=== PATIENT | male | born 1980 | race Two or more races ===

== ENCOUNTER 2019-06-30 09:53 | Emergency (ER) | payer MEDICAID, OTHER ==
[~2019-06-30] VITALS: Ht 154.9 cm; Wt 77.1 kg
[2019-06-30] MEDS: cloNIDine HCL 0.1 MG TAB PO ONE (10:21)
[2019-06-30] MEDS: cloNIDine HCL 0.1 MG TAB ONE (10:21)
[2019-06-30 11:55] VITALS: BP 167/105
== END 2019-06-30 12:11 | disposition home or self-care (01) ==
LOC: ER 09:55
DX: G43.909 Migraine, unspecified, not intractable, without status migrainosus (principal); H66.91 Otitis media, unspecified, right ear; I10 Essential (primary) hypertension
CPT/HCPCS: 70450

== ENCOUNTER 2019-07-08 09:44 | Emergency (ER) | payer MEDICAID ==
[~2019-07-08] VITALS: Ht 154.9 cm; Wt 77.1 kg
[2019-07-08] MEDS ORDERED: ASPirin 81 mg TAB PO ONE (10:00)
[2019-07-08] MEDS ORDERED: cloNIDine HCL 0.1 MG TAB PO ONE (10:00)
[2019-07-08 10:16] LABS: Basophils # (auto) 0 uL; Basophils % (auto) 0.6 % (0.0-2.0); Eosinophils # (auto) 0.1 uL; Eosinophils % (auto) 1.2 % (0.0-7.0); Hematocrit 49.5 % (41.0-53.0); Hemoglobin 17.2 g/dL (13.5-17.5); Lymphocytes # (auto) 1.8 uL; Lymphocytes % (auto) 26.4 % (10.0-50.0); Mean Corpuscular Hemoglobin 30.4 pg (28.0-32.0); Mean Corpuscular Hgb Conc. 34.8 g/dL (32.0-36.0); Mean Corpuscular Volume 87.3 fL (80.0-100.0); Monocytes # (auto) 0.5 uL; Monocytes % (auto) 7.6 % (0.0-12.0); Neutrophils # (auto) 4.3 uL; Neutrophils % (auto) 64.2 % (37.0-80.0); Nucleated Red Blood Cells % 0.1 %; Platelet Count (auto) 235 10^3/uL (140-450); Red Blood Cells 5.67 10^6/uL (4.5-5.90); Red Cell Distribution Width 13.6 % (11.8-14.3); White Blood Cell 6.6 10^3/uL (4.4-10.8)
[2019-07-08 10:36] LABS: Albumin 4.2 g/dL (3.4-5.0); Anion Gap 5 (5-15); Blood Urea Nitrogen 15 mg/dL (7-18); Carbon Dioxide 30 mmol/L (21-32); Chloride 104 mmol/L (98-107); Glucose 92 mg/dL (74-106); Sodium 139 mmol/L (136-145)
[2019-07-08 10:41] LABS: Alanine Aminotransferase 64 U/L (16-61); Alkaline Phosphatase 75 U/L (45-117); Aspartate Aminotransferase 29 U/L (15-37); BUN/Creatinine Ratio 14.7; Bilirubin, Total 0.6 mg/dL (0.2-1.0); GFR African American 105 mL/min; GFR Non-African American 86 mL/min; Total Protein 8.1 g/dL (6.4-8.2)
[2019-07-08 11:50] VITALS: BP 144/100
[2019-07-08] MEDS: LORazepam 0.5 MG TAB PO ONE ×2 (11:52→11:59)
== END 2019-07-08 12:05 | disposition home or self-care (01) ==
LOC: ER 09:48
DX: I10 Essential (primary) hypertension (principal); F41.9 Anxiety disorder, unspecified; R51 Headache; R42 Dizziness and giddiness; R55 Syncope and collapse
CPT/HCPCS: 36415; 80053; 84484; 85025; 93005

== ENCOUNTER 2025-04-10 10:00 | Inpatient (IN) | payer MEDICAID ==
[~2025-04-10] VITALS: Ht 154.9 cm; Wt 65.5 kg
[2025-04-10 10:49] LABS: Urine Protein, UAD Negative (Negative)
[2025-04-10 11:14] LABS: Hematocrit 45.2 % (41.0-53.0); Hemoglobin 15.7 g/dL (13.5-17.5); Mean Corpuscular Hemoglobin 30.8 pg (28.0-32.0); Mean Corpuscular Volume 88.6 fL (80.0-100.0); Nucleated Red Blood Cells % 0.1 %
[2025-04-10 11:22] LABS: Potassium 3.7 mmol/L (3.5-5.1); Sodium 139 mmol/L (136-145)
[2025-04-10 11:23] LABS: Anion Gap 11 (5-15); Calcium 9.6 mg/dL (8.7-10.4); Carbon Dioxide 30 mmol/L (20-31)
[2025-04-10 11:27] LABS: Chloride 98 mmol/L (98-107)
[2025-04-10 11:28] LABS: BUN/Creatinine Ratio 7.7 (10.0-20.0)
[2025-04-10 11:29] LABS: Glucose 139 mg/dL (74-106)
[2025-04-10 11:30] LABS: Blood Urea Nitrogen 7 mg/dL (9-23)
--- NOTE | 2025-04-10 11:30 | ED.PDOC ---
General HPI Comments 44 year old male presents to the ED with a chief complaint of flank pain onset 1 day. Patient states he has been experiencing bilateral flank pain for the past day, last night began experiencing fever, chills, generalized body aches and headache. He experienced similar symptoms February 2025, hematuria, flank pain, resolved on its own, did not see PCP. Denies hematemesis, nausea, vomiting, dizziness, numbness/tingling, abdominal pain, chest pain. No other symptoms or modifying factors present at this time. Chief Complaint: Flank Pain Time Seen by MD: 11:15 Primary Care Provider: DENIES Reviewed notes: Medications, Allergies Allergies: Coded Allergies: NO KNOWN ALLERGIES (Unverified , 06/30/19) Home Meds Reported Medications Cholecalciferol (VITAMIN D3) 2,000 Unit Tab, 1 TAB PO DAILY, #30 TAB 5 Refills 04/10/25 Omeprazole (Gnp Omeprazole) 20 Mg Tab, 1 TAB PO DAILY, #90 TAB 1 Refill 04/10/25 Semaglutide (Ozempic) 2 Mg/3 Ml Inj, 2 MG SC, INJ 04/10/25 Atorvastatin Calcium (ATORVASTATIN CALCIUM) 20 Mg Tab 04/10/25 Lisinopril & Hydrochlorothiazi (Lisinopril/Hydrochlorothi) 1 Tab Tab, 1 TAB PO DAILY 04/10/25 Information Source: Patient Mode of Arrival: Ambulatory Severity: Moderate Timing: Days Duration: Since onset Prehospital treatment: None Onset: Spontaneous Symptoms: Other History of: Kidney stone Location: (R) Flank, (L)Flank Penile discharge: None Modifying factors: None associated signs and symptoms: Fever, Flank Pain Past Medical History PAST MEDICAL HISTORY: DM, High Lipids, HTN, Kidney Stones Surgical History: Denies all surgeries Family History Family History: Reviewed,noncontributory to illness Social History Smoker: Non-Smoker Alcohol: Denies ETOH Use Drugs: Denies Drug Use Lives In: Home Constitutional: reports: chills, fever, others (body aches); denies: diaphoresis, fatigue, malaise, sweats, weakness EENTM: denies: blurred vision, double vision, ear bleeding, ear discharge, ear drainage, ear pain, ear ringing, eye pain, eye redness, hearing loss, mouth pain, mouth swelling, nasal discharge, nose bleeding, nose congestion, nose pain, photophobia, tearing, throat pain, throat swelling, voice changes, others Respiratory: denies: cough, hemoptysis, orthopnea, SOB at rest, shortness of breath, SOB with excertion, stridor, wheezing, others Cardiovascular: denies: chest pain, dizzy spells, diaphoresis, Dyspnea on exertion, edema, irregular heart beat, left arm pain, lightheadedness, palpitations, PND, syncope, others Gastrointestinal: denies: abdomen distended, abdominal pain, blood streaked bowels, constipated, diarrhea, dysphagia, difficulty swallowing, hematemesis, melena, nausea, poor appetite, poor fluid intake, rectal bleeding, rectal pain, vomiting, others Genitourinary: reports: flank pain; denies: burning, dysuria, frequency, hematuria, incontinence, penile discharge, penile sore, pain, testicle pain, testicle swelling, urgency, others Neurological: reports: headache; denies: dizziness, fainting, left sided numbness, left sided weakness, numbness, paresthesia, pre-existing deficit, right sided numbness, right sided weakness, seizure, speech problems, tingling, tremors, weakness, others Musculoskeletal: denies: back pain, gout, joint pain, joint swelling, muscle pain, muscle stiffness, neck pain, others Integumetry: denies: bruises, change in color, change in hair/nails, dryness, laceration, lesions, lumps, rash, wounds, others Allergic/Immunocompromised: denies: Difficulty Healing, Frequent Infections, Hives, Itching, others Hematologic/Lymphatic: denies: anemia, blood clots, easy bleeding, easy bruising, swollen glands, others Endocrine: denies: excessive hunger, excessive sweating, excessive thirst, excessive urination, flushing, intolerance to cold, intolerance to heat, une xplained weight gain, unexplained weight loss, others Psychiatric: denies: anxiety, bipolar disorder, depression, hopeless, panic disorder, schizophrenia, sleepless, suicidal, others All Other Systems: Reviewed and Negative Physical Exam General Appearance: Moderate Distress, Normal HEENT: Normal ENT Inspection, Pharynx Normal, TMs Normal Neck: Full Range of Motion, Non-Tender, Normal, Normal Inspection Respiratory: Chest Non-Tender, Lungs Clear, No Accessory Muscle Use, No Respiratory Distress, Normal Breath Sounds Cardiovascular: No Edema, No JVD, No Murmur, No Gallop, Normal Peripheral Pulses, Regular Rate/Rhythm Breast Exam: Deferred Gastrointestinal: Diffuse, No Organomegaly, No Pulsatile Mass, Normal Bowel Sounds, Soft Genitalia: Deferred Pelvic: Deferred Rectal: Deferred Extremities: No calf tenderness, Normal capillary refill, Normal inspection, Normal range of motion, Non-tender, No pedal edema Musculoskeletal : Apperance: Normal Neurologic: Alert, spindle plumber II-XII nml as Tested, No Motor Deficits, Normal Affect, Normal Mood, No Sensory Deficits Cerebellar Function: Normal Reflexes: Normal Skin: Dry, Normal Color, Warm Peripheral Pulses: 3+ Radial (R), 3+ Radial (L) Lymphatic: No Adenopathy Was a procedure done? Was a procedure done?: No Differential Diagnosis Kidney stone (Female): Musculoskeletal pain, Urinary obstruction, Urolithiasis X-Ray, Labs, Meds, VS Vital Signs Date Time Temp Pulse Resp B/P (MAP) Pulse Ox O2 Delivery O2 Flow Rate FiO2 04/10/25 12:58 96 16 98 Room Air 04/10/25 12:58 98.5 96 16 124/78 (93) 98 98.5 04/10/25 10:02 98.5 106 18 114/82 96 98.5 Lab Test 04/10/25 12:52 04/10/25 11:00 04/10/25 10:34 Range/Units Lactic Acid Level 0.9 0.4-2.0 mmol/L White Blood Count 15.5 H 4.4-10.8 10^3/uL Red Blood Count 5.10 4.5-5.90 10^6/uL Hemoglobin 15.7 13.5-17.5 g/dL Hematocrit 45.2 41.0-53.0 % Mean Corpuscular Volume 88.6 80.0-100.0 fL Mean Corpuscular Hemoglobin 30.8 28.0-32.0 pg Mean Corpuscular Hemoglobin Concent 34.8 32.0-36.0 g/dL Red Cell Distribution Width 13.6 11.8-14.3 % Platelet Count 239 140-450 10^3/uL Mean Platelet Volume 7.2 6.9-10.8 fL Neutrophils (%) (Auto) 88.3 H 37.0-80.0 % Lymphocytes (%) (Auto) 6.4 L 10.0-50.0 % Monocytes (%) (Auto) 5.0 0.0-12.0 % Eosinophils (%) (Auto) 0.1 0.0-7.0 % Basophils (%) (Auto) 0.2 0.0-2.0 % Neutrophils # (Auto) 13.7 H 1.6-8.6 10 ^3/uL Lymphocytes # (Auto) 1.0 0.4-5.4 10 ^3/uL Monocytes # (Auto) 0.8 0-1.3 10 ^3/uL Eosinophils # (Auto) 0 0-0.8 10 ^3/uL Basophils # (Auto) 0 0-0.2 10 ^3/uL Nucleated Red Blood Cells 0.1 % Sodium Level 139 136-145 mmol/L Potassium Level 3.7 3.5-5.1 mmol/L Chloride Level 98 98-107 mmol/L Carbon Dioxide Level 30 20-31 mmol/L Anion Gap 11 5-15 Blood Urea Nitrogen 7 L 9-23 mg/dL Creatinine 0.91 0.700-1.30 mg/dL Glomerular Filtration Rate Calc 106 >90 mL/min BUN/Creatinine Ratio 7.7 L 10.0-20.0 Serum Glucose 139 H 74-106 mg/dL Calcium Level 9.6 8.7-10.4 mg/dL Urine Color Light-yellow Yellow Urine Clarity Clear Clear Urine pH 6.5 5.0-9.0 Urine Specific [place] 1.014 1.001-1.035 Urine Protein Negative Negative Urine Ketones Negative Negative Urine Blood Negative Negative /uL Urine Nitrite Negative Negative Urine Bilirubin Negative Negative Urine Urobilinogen Normal Negative mg/dL Urine Leukocyte Esterase Negative Negative /uL Urine RBC <1 0 - 3 /hpf Urine Microscopic WBC 4 H 0-3 /HPF Urine Squamous Epithelial Cells None seen <5 /hpf Urine Bacteria None seen None Seen /hpf Urine Glucose Normal Normal mg/dL Current Medications Medications (Trade) Dose Ordered Sig/Randy Route Start Time Stop Time Status Last Admin Metronidazole 100 ml @ 100 mls/hr ONCE ONCE IV 04/10/25 12:15 04/10/25 13:14 DC 04/10/25 12:56 Sodium Chloride 1,000 ml @ 1,000 mls/hr Q1H ONCE IV 04/10/25 12:15 04/10/25 13:14 DC 04/10/25 12:56 Patient alert. Complaining of flank pain extending to the abdomen. Vitals stable. Answering questions. Has been having fever. WBC elevated. Establish intravenous access. Was given fluids. Was given Zosyn. Was given Flagyl. Possible sepsis. Continue monitoring. Time of 1ST Reevaluation: 11:45 Reevaluation 1ST: Unchanged Patient Education/Counseling: Diagnosis, Treatment, Prognosis, Pt Unresponsive Family Education/Counseling: No Family Present SEPSIS Sepsis Screen Date sepsis recognized/suspect: Apr 10, 2025 Time Sepsis recognized/suspect: 1003 Recent Procedure: No On Antibiotic Therapy: No Respiratory Rate >20: No Heart Rate >90: No Temp<36 C (96.8 F) or >38.3 C: No SBP <90 or MAP <65 mmHG: No New Acute Mental Status Change: No Is the patient on CPAP, BIPAP,: No Physician Orders Ct Ab Pel Wo Con-No Oral Or Iv (04/10/25 12:08) Blood Culture (04/10/25 12:08) Sodium Chloride 0.9% (04/10/25 12:15) Vital Signs Date Time Temp Pulse Resp B/P (MAP) Pulse Ox O2 Delivery O2 Flow Rate FiO2 04/10/25 12:58 96 16 98 Room Air 04/10/25 12:58 98.5 96 16 124/78 (93) 98 98.5 04/10/25 10:02 98.5 106 18 114/82 96 98.5 Laboratory Tests Test 04/10/25 11:00 04/10/25 12:52 White Blood Count 15.5 10^3/uL (4.4-10.8) H Lactic Acid Level 0.9 mmol/L (0.4-2.0) Medications Medications Dose Ordered Sig/Randy Route Start Time Stop Time Status Last Admin Dose Admin Metronidazole 100 ml @ 100 mls/hr ONCE ONCE IV 04/10/25 12:15 04/10/25 13:14 DC 04/10/25 12:56 Sodium Chloride 1,000 ml @ 1,000 mls/hr Q1H ONCE IV 04/10/25 12:15 04/10/25 13:14 DC 04/10/25 12:56 Departure 1 Departure Time of Disposition: 13:48 Impression: Primary Impression: Sepsis, unspecified organism Qualified Codes: A41.9 - Sepsis, unspecified organism Additional Impression: Hyperglycemia Disposition: ADMITTED INPATIENT Admit to: Med Surg Condition: Guarded Critical Care Note Critical Care Time?: No Stability Stability form required: No Heart Score Heart Score: Heart Score Response (Comments) Value History N/A 0 EKG N/A 0 Age N/A 0 Risk Factors N/A 0 Troponin N/A 0 Total 0 I personally scribed for KENNETH QUINTERO MD ([email or web address]) on 04/10/25 at 11:30. Electronically submitted by Valeria Quezada ([email or web address]). KENNETH QUINTERO MD Apr 10, 2025 11:30
[2025-04-10] MEDS: PIPERACILLIN-TAZOB 3.375GM 100 ML IV ONE (12:15)
[2025-04-10] MEDS ORDERED: SODIUM CHLORIDE 0.9% 1,000 ML IV ONE (12:15)
--- NOTE | 2025-04-10 12:46 | DVH ---
Indication: colitisvsstone Technique: CT axial images of the abdomen and pelvis are obtained without contrast. Coronal and sagit candy reformats were obtained. Radiation Dose Information: CTDI volume is 8.23 mGy. Dose-length product is 446.35 mGy*cm Comparison: None FINDINGS: There is limited interpretation of the abdomen and pelvis without administration of intravenous contr ast. Bases demonstrate no pleural effusion. Adrenal glands, spleen, pancreas unremarkable in shape. Liver unremarkable in shape. No CT evidence for cholelithiasis. No hydronephrosis /nephrolithiasis. Stomach partially distended. Small bowel loops are normal in ca liber. Moderate volume stool in the colon. Normal appendix. Bladder partially distended. No free pelvic fluid. No inguinal lymphadenopathy. Mild thoracolumbar degenerative disc disease. IMPRESSION: Limited evaluation without contrast. No hydronephrosis / nephrolithiasis. No bowel obstruction. Moderate volume stool in the colon. Other findings as described
[2025-04-10] MEDS: SODIUM CHLORIDE 0.9% 1,000 ML IV ONE (12:56)
--- NOTE | 2025-04-10 14:58 | DVHHP2 ---
Admitting Diagnosis: Flank pain History of Present Illness 44 yo male patient c/o bilateral flank pain x 1 day with associated fever, chills, and body aches. Patient sts that he had similar symptoms in February and the pain resolved on its own. While in the emergency department the patient was evaluated by the provider, As per provider: Labs, vital signs, and imagining monitored. Patient will be admitted for further evaluation and treatment. I discussed admission with the patient/family and is in agreement to treatment plan. Allergies: Coded Allergies: NO KNOWN ALLERGIES (Unverified , 06/30/19) Home Meds Reported Medications Cholecalciferol (VITAMIN D3) 2,000 Unit Tab, 1 TAB PO DAILY, #30 TAB 5 Refills 04/10/25 Omeprazole (Gnp Omeprazole) 20 Mg Tab, 1 TAB PO DAILY, #90 TAB 1 Refill 04/10/25 Semaglutide (Ozempic) 2 Mg/3 Ml Inj, 2 MG SC, INJ 04/10/25 Atorvastatin Calcium (ATORVASTATIN CALCIUM) 20 Mg Tab 04/10/25 Lisinopril & Hydrochlorothiazi (Lisinopril/Hydrochlorothi) 1 Tab Tab, 1 TAB PO DAILY 04/10/25 Current Medications Current Medications Medications (Trade) Dose Ordered Sig/Randy Route PRN Reason Start Time Stop Time Status Last Admin Acetaminophen/ Hydrocodone Bitart ([place] 5/325MG Tab) 1 tab Q4HP PRN PO MODERATE PAIN (4-6 PAIN SCALE) 04/10/25 15:00 Temazepam (Restoril) 15 mg QHSP PRN PO FOR INSOMNIA 04/10/25 15:00 Ondansetron HCl (Zofran) 4 mg Q4HP PRN IV NAUSEA / VOMITING 04/10/25 15:00 Docusate Sodium (Colace Capsule) 100 mg BIDPRN PRN PO FOR CONSTIPATION 04/10/25 15:00 Enoxaparin Sodium (Lovenox) 40 mg DAILY SC 04/11/25 10:00 Acetaminophen (Tylenol Tablet) 650 mg Q6HP PRN PO PAIN SCALE 1-3 OR TEMP>100.4 04/10/25 15:00 04/10/25 17:07 Morphine Sulfate 2 mg Q4HPRN PRN IV SEVERE PAIN (7-10 PAIN SCALE) 04/10/25 16:00 Levofloxacin/ Dextrose 100 ml @ 100 mls/hr DAILY IV 04/10/25 15:00 04/10/25 20:16 Atorvastatin Calcium (Lipitor) 20 mg HS PO 04/10/25 22:00 Patient Own Medication 1 tab DAILY PO 04/11/25 10:00 04/10/25 15:59 DC Pantoprazole Sodium (Protonix Tablet) 40 mg DAILY@0600 PO 04/11/25 06:00 04/10/25 18:18 DC Lisinopril (Zestril Tablet) 20 mg DAILY PO 04/11/25 10:00 Hydrochlorothiazide (hydroCHLOROthiazide TABLET) 12.5 mg DAILY PO 04/11/25 10:00 Sodium Chloride 1,000 ml @ 100 mls/hr Q10H IV 04/10/25 17:30 04/10/25 17:30 Famotidine (Pepcid Tablet) 20 mg DAILY PO 04/11/25 10:00 Future hold Review of Systems Constitutional: denies chills, denies fever, denies malaise Eyes: denies eye pain, denies vision change ENT: denies ear pain, denies headache, denies nasal congestion, denies painful swallowing, denies voice change Cardiovascular: denies chest pain, denies edema, denies orthopnea, denies palpitations, denies paroxysmal nocturnal dyspnea Respiratory: denies cough, denies shortness of breath Gastrointestinal: denies constipation, denies diarrhea, denies nausea, denies vomiting Genitourinary: denies dysuria, denies frequent urination, denies urethral discharge Musculoskeletal: denies back pain, denies joint pain, denies muscle pain Skin: denies bruising, denies itching, denies rash Neurological: denies focal weakness, denies headache, denies sensory changes Psychiatric: denies anxiety, denies depression Endocrine: denies polydipsia, denies polyuria Hematologic/Lymphatic: denies easy bleeding, denies easy bruising, denies enlarged lymph nodes Allergic/Immunologic: denies allergy, denies hives Vital Signs Vital Signs Date Time Temp Pulse Resp B/P (MAP) Pulse Ox O2 Delivery O2 Flow Rate FiO2 04/10/25 16:59 98.5 89 18 128/74 (92) 97 98.5 04/10/25 12:58 Room Air Physical Exam General Appearance: alert, no distress HEENT: EOMI, PERRLA, normal external inspect of ears, no icterus, no nasal drainage Neck: no carotid bruit, no jugular venous distention (JVD), no lymphadenopathy Chest: normal thorax Respiratory: clear to auscultation, normal air movement Cardiovascular: regular rate and rhythm, no diastolic murmur, no jugular venous distention (JVD), no rub, no systolic murmur Abdominal: soft, no hepatomegaly, no mass, no splenomegaly, no tenderness Genitourinary: grossly normal external Musculoskeletal: no joint tenderness, no swelling Extremities: normal pulses, no calf tenderness, no clubbing, no cyanosis, no edema Skin: no bruising, no jaundice, no rash Neurological: alert, No focal deficit SEPSIS Sepsis Screen Date sepsis recognized/suspect: Apr 10, 2025 Time Sepsis recognized/suspect: 1002 Recent Procedure: No On Antibiotic Therapy: No Respiratory Rate >20: No Heart Rate >90: No Temp<36 C (96.8 F) or >38.3 C: No SBP <90 or MAP <65 mmHG: No New Acute Mental Status Change: No Is the patient on CPAP, BIPAP,: No Physician Orders Ct Ab Pel Wo Con-No Oral Or Iv (04/10/25 12:08) Blood Culture (04/10/25 12:08) Admit (04/10/25 14:55) Code Status (04/10/25 14:55) 2 Gm Sodium Diet (04/10/25 Dinner) Hydrocodone-Acet 5/325mg Tab ([place] 5/32 (04/10/25 15:00) Temazepam (Restoril) (04/10/25 15:00) Ondansetron Hcl (Zofran) (04/10/25 15:00) Docusate Sodium Capsule (Colace Capsule) (04/10/25 15:00) Enoxaparin Sodium (Lovenox) (04/11/25 10:00) Complete Blood Count (04/11/25 04:00) Comprehensive Metabolic Panel (04/11/25 04:00) Condition: Fair (04/10/25 14:55) Acetaminophen Tablet (Tylenol Tablet) (04/10/25 15:00) Levofloxacin 500mg (Levaquin 500mg/ 100m (04/10/25 15:00) Atorvastatin (Lipitor) (04/10/25 22:00) Morphine Sulfate Injection (04/10/25 16:00) Lisinopril Tablet (Zestril Tablet) (04/11/25 10:00) Hydrochlorothiazide Tablet (Hydrochlorot (04/11/25 10:00) Sodium Chloride 0.9% (04/10/25 17:30) Famotidine Tablet (Pepcid Tablet) (04/11/25 10:00) Vital Signs Date Time Temp Pulse Resp B/P (MAP) Pulse Ox O2 Delivery O2 Flow Rate FiO2 04/10/25 16:59 98.5 89 18 128/74 (92) 97 98.5 04/10/25 12:58 96 16 98 Room Air 04/10/25 12:58 98.5 96 16 124/78 (93) 98 98.5 04/10/25 10:02 98.5 106 18 114/82 96 98.5 Laboratory Tests Test 04/10/25 11:00 04/10/25 12:52 White Blood Count 15.5 10^3/uL (4.4-10.8) H Lactic Acid Level 0.9 mmol/L (0.4-2.0) Medications Medications Dose Ordered Sig/Randy Route Start Time Stop Time Status Last Admin Dose Admin Acetaminophen 650 mg Q6HP PRN PO 04/10/25 15:00 04/10/25 17:07 Levofloxacin/ Dextrose 100 ml @ 100 mls/hr DAILY IV 04/10/25 15:00 04/10/25 20:16 Metronidazole 100 ml @ 100 mls/hr ONCE ONCE IV 04/10/25 12:15 04/10/25 13:14 DC 04/10/25 12:56 Piperacillin Sod/ Tazobactam Sod 100 ml @ 100 mls/hr ONCE ONCE IV 04/10/25 12:15 04/10/25 13:14 DC 04/10/25 12:15 Sodium Chloride 1,000 ml @ 100 mls/hr Q10H IV 04/10/25 17:30 04/10/25 17:30 Sodium Chloride 1,000 ml @ 1,000 mls/hr Q1H ONCE IV 04/10/25 12:15 04/10/25 13:14 DC 04/10/25 12:56 Results Labs Test 04/10/25 12:52 04/10/25 11:00 04/10/25 10:34 Range/Units Lactic Acid Level 0.9 0.4-2.0 mmol/L White Blood Count 15.5 H 4.4-10.8 10^3/uL Red Blood Count 5.10 4.5-5.90 10^6/uL Hemoglobin 15.7 13.5-17.5 g/dL Hematocrit 45.2 41.0-53.0 % Mean Corpuscular Volume 88.6 80.0-100.0 fL Mean Corpuscular Hemoglobin 30.8 28.0-32.0 pg Mean Corpuscular Hemoglobin Concent 34.8 32.0-36.0 g/dL Red Cell Distribution Width 13.6 11.8-14.3 % Platelet Count 239 140-450 10^3/uL Mean Platelet Volume 7.2 6.9-10.8 fL Neutrophils (%) (Auto) 88.3 H 37.0-80.0 % Lymphocytes (%) (Auto) 6.4 L 10.0-50.0 % Monocytes (%) (Auto) 5.0 0.0-12.0 % Eosinophils (%) (Auto) 0.1 0.0-7.0 % Basophils (%) (Auto) 0.2 0.0-2.0 % Neutrophils # (Auto) 13.7 H 1.6-8.6 10 ^3/uL Lymphocytes # (Auto) 1.0 0.4-5.4 10 ^3/uL Monocytes # (Auto) 0.8 0-1.3 10 ^3/uL Eosinophils # (Auto) 0 0-0.8 10 ^3/uL Basophils # (Auto) 0 0-0.2 10 ^3/uL Nucleated Red Blood Cells 0.1 % Sodium Level 139 136-145 mmol/L Potassium Level 3.7 3.5-5.1 mmol/L Chloride Level 98 98-107 mmol/L Carbon Dioxide Level 30 20-31 mmol/L Anion Gap 11 5-15 Blood Urea Nitrogen 7 L 9-23 mg/dL Creatinine 0.91 0.700-1.30 mg/dL Glomerular Filtration Rate Calc 106 >90 mL/min BUN/Creatinine Ratio 7.7 L 10.0-20.0 Serum Glucose 139 H 74-106 mg/dL Calcium Level 9.6 8.7-10.4 mg/dL Urine Color Light-yellow Yellow Urine Clarity Clear Clear Urine pH 6.5 5.0-9.0 Urine Specific [place] 1.014 1.001-1.035 Urine Protein Negative Negative Urine Ketones Negative Negative Urine Blood Negative Negative /uL Urine Nitrite Negative Negative Urine Bilirubin Negative Negative Urine Urobilinogen Normal Negative mg/dL Urine Leukocyte Esterase Negative Negative /uL Urine RBC <1 0 - 3 /hpf Urine Microscopic WBC 4 H 0-3 /HPF Urine Squamous Epithelial Cells None seen <5 /hpf Urine Bacteria None seen None Seen /hpf Urine Glucose Normal Normal mg/dL Plan 1. Complicated UTI Monitor, IV fluids, IV abx 2. HLD Monitor, PPI, DVT prophylaxis 3. Benign essential HTN Monitor, restart atorvastatin, restart lisinopril Plan discussed with: Patient, Other MARIA D NOBLE NP Apr 10, 2025 14:58
[2025-04-10] MEDS ORDERED: LISI-285 PO (14:59)
[2025-04-10] MEDS ORDERED: ATOR20TA50 (14:59)
[2025-04-10] MEDS ORDERED: ONDANSETRON HCL 4 MG/2 ML VIAL IV PRN (15:00)
[2025-04-10] MEDS ORDERED: HYDROcodone-ACET 5/325MG TAB PO PRN (15:00)
[2025-04-10] MEDS ORDERED: DOCUSATE SOD 100 MG CAP PO PRN (15:00)
[2025-04-10] MEDS ORDERED: TEMAZEPAM 15 MG CAP PO PRN (15:00)
[2025-04-10] MEDS ORDERED: MORPHINE SULFATE 4 MG/ML SYR/VIAL IV PRN (16:00)
[2025-04-10 16:59] VITALS: BP 128/74; PULSE 89; RESP 18; TEMP 98.5; O2SAT 97
[2025-04-10] MEDS: ACETAMINOPHEN 325 MG TAB PO PRN (17:07)
[2025-04-10] MEDS ORDERED: CHOL20007 PO (17:19)
[2025-04-10] MEDS ORDERED: SEMA2INJ3 SC (17:19)
[2025-04-10] MEDS ORDERED: OMEP20TA PO (17:19)
[2025-04-10] MEDS: SODIUM CHLORIDE 0.9% 1,000 ML IV SCH (17:30)
[2025-04-10 20:47] VITALS: BP 112/77; PULSE 84; RESP 16; TEMP 98.8; O2SAT 99
[2025-04-10 21:13] VITALS: BP 115/85; PULSE 83; RESP 16; TEMP 98.3; O2SAT 96
[2025-04-10] MEDS: ATORVASTATIN 20 MG TAB PO SCH (22:58)
[2025-04-11] VITALS (7 sets, daily range): BP systolic 106–126; BP diastolic 71–87; PULSE 78–83; RESP 16–80; TEMP 98.3–98.8; O2SAT 96–99
[2025-04-11] MEDS ORDERED: PANTOPRAZOLE 40 MG TAB PO SCH (06:00)
[2025-04-11 09:28] LABS: Hematocrit 42.8 % (41.0-53.0); Hemoglobin 15.2 g/dL (13.5-17.5); Mean Corpuscular Hemoglobin 31.1 pg (28.0-32.0); Mean Corpuscular Volume 87.7 fL (80.0-100.0); Nucleated Red Blood Cells % 0.1 %
[2025-04-11 09:42] LABS: Alanine Aminotransferase 18 U/L (7-40); Alkaline Phosphatase 56 U/L (46-116); Anion Gap 10 (5-15); BUN/Creatinine Ratio 8.1 (10.0-20.0); Calcium 9.1 mg/dL (8.7-10.4); Carbon Dioxide 28 mmol/L (20-31); Chloride 103 mmol/L (98-107); Glucose 98 mg/dL (74-106); Potassium 3.9 mmol/L (3.5-5.1); Sodium 141 mmol/L (136-145); Total Protein 7.4 g/dL (5.7-8.2)
[2025-04-11 09:43] LABS: Albumin 4.6 g/dL (3.2-4.8)
[2025-04-11 09:44] LABS: Bilirubin, Total 2.1 mg/dL (0.2-1.0); Blood Urea Nitrogen 6 mg/dL (9-23)
[2025-04-11] MEDS ORDERED: PATIENTS OWN MEDICATION (Lisinopril & Hydrochlorothiazi (Lisinopril/Hydrochlorothi) 1 TAB) PO SCH (10:00)
[2025-04-11] MEDS: ENOXAPARIN SOD 40 MG/0.4 ML SYRINGE SC SCH (10:03)
[2025-04-11] MEDS: FAMOTIDINE 20 MG TAB PO SCH (10:04)
[2025-04-11] MEDS: hydroCHLOROthiazide 25 MG TAB PO SCH (10:04)
[2025-04-11] MEDS: LISINOPRIL 20 MG TAB PO SCH (10:04)
--- NOTE | 2025-04-11 12:08 | DVHPN2 ---
Progress Note - Dictate Date Seen: Apr 11, 2025 Medical Necessity Reason Pt with a Central, PICC or Fol: No vital signs Vital Sign Date Time Temp Pulse Resp B/P (MAP) Pulse Ox O2 Delivery O2 Flow Rate FiO2 04/11/25 10:04 126/56 04/11/25 09:00 98.6 80 18 96 98.6 04/10/25 21:33 Room Air* 0 21 Total Intake and Output 04/10/25 04/10/25 04/11/25 15:00 23:00 07:00 Intake Total 220 ml Output Total 0 ml Balance 0 ml 220 ml medications Current Medications Medications Dose Ordered Sig/Randy Route Start Time Stop Time Status Last Admin Dose Admin Acetaminophen/ Hydrocodone Bitart 1 tab Q4HP PRN PO 04/10/25 15:00 Temazepam 15 mg QHSP PRN PO 04/10/25 15:00 Ondansetron HCl 4 mg Q4HP PRN IV 04/10/25 15:00 Docusate Sodium 100 mg BIDPRN PRN PO 04/10/25 15:00 Enoxaparin Sodium 40 mg DAILY SC 04/11/25 10:00 04/11/25 10:03 40 MG Acetaminophen 650 mg Q6HP PRN PO 04/10/25 15:00 04/11/25 06:27 650 MG Morphine Sulfate 2 mg Q4HPRN PRN IV 04/10/25 16:00 Levofloxacin/ Dextrose 100 ml @ 100 mls/hr DAILY IV 04/10/25 15:00 04/11/25 10:05 100 MLS/HR Atorvastatin Calcium 20 mg HS PO 04/10/25 22:00 04/10/25 22:58 20 MG Lisinopril 20 mg DAILY PO 04/11/25 10:00 04/11/25 10:04 20 MG Hydrochlorothiazide 12.5 mg DAILY PO 04/11/25 10:00 04/11/25 10:04 12.5 MG Sodium Chloride 1,000 ml @ 100 mls/hr Q10H IV 04/10/25 17:30 04/10/25 17:30 100 MLS/HR Famotidine 20 mg DAILY PO 04/11/25 10:00 04/11/25 10:04 20 MG objective General Appearance: alert, no distress HEENT: EOMI, PERRLA, normal external inspect of ears, no icterus, no nasal drainage Neck: no carotid bruit, no jugular venous distention (JVD), no lymphadenopathy Chest: normal thorax Respiratory: clear to auscultation, normal air movement Cardiovascular: regular rate and rhythm, no diastolic murmur, no jugular venous distention (JVD), no rub, no systolic murmur Abdominal: soft, no hepatomegaly, no mass, no splenomegaly, no tenderness Genitourinary: grossly normal external Musculoskeletal: no joint tenderness, no swelling Extremities: normal pulses, no calf tenderness, no clubbing, no cyanosis, no edema Skin: no bruising, no jaundice, no rash Neurological: alert, No focal deficit laboratory and microbiology Laboratory Tests 04/11/25 07:39 Test 04/11/25 07:39 Range/Units Serum Glucose 98 74-106 mg/dL Problem List 1. Complicated UTI Monitor, IV fluids, IV abx 2. HLD Monitor, PPI, DVT prophylaxis 3. Benign essential HTN Monitor, restart atorvastatin, restart lisinopril Assessment/Plan Subjective: Patient is awake and alert. Objective: Patient was admitted for flank pain related to a complicated UTI. He states he felt much better after receiving IV fluids and IV antibiotics. Still complaining of periodic pain 5 out of 10 that comes and goes to his leg area. WBC is now within normal limits. Plan: Continue IV fluids and IV antibiotics. Start medication for high blood pressure. Continue hypercholesterol medication. Repeat labs ordered for a.m. Discharge plan for tomorrow. Plan discussed with: Patient, Other MARIA D NOBLE NP Apr 11, 2025 12:08
[2025-04-12 01:00] VITALS: BP 109/70; PULSE 70; RESP 18; TEMP 98; O2SAT 97
[2025-04-12 05:00] VITALS: BP 107/72; PULSE 73; RESP 17; TEMP 97.7; O2SAT 98
[2025-04-12 07:30] VITALS: PULSE 87; RESP 18; O2SAT 96
[2025-04-12 09:00] VITALS: BP 134/92; PULSE 87; RESP 18; TEMP 97.7; O2SAT 96
[2025-04-12] MEDS ORDERED: LEVO500T91 PO ×2 (11:44→11:46)
--- NOTE | 2025-04-12 11:46 | DVHDS2 ---
Discharge Summary Date of Admission Apr 10, 2025 at 14:55 Date of Discharge: Apr 12, 2025 Labs/Diagnostic Data: Laboratory Results Test 04/11/25 07:39 04/10/25 12:52 04/10/25 10:34 White Blood Count 10.3 10^3/uL (4.4-10.8) Red Blood Count 4.88 10^6/uL (4.5-5.90) Hemoglobin 15.2 g/dL (13.5-17.5) Hematocrit 42.8 % (41.0-53.0) Mean Corpuscular Volume 87.7 fL (80.0-100.0) Mean Corpuscular Hemoglobin 31.1 pg (28.0-32.0) Mean Corpuscular Hemoglobin Concent 35.4 g/dL (32.0-36.0) Red Cell Distribution Width 14.0 % (11.8-14.3) Platelet Count 234 10^3/uL (140-450) Mean Platelet Volume 8.1 fL (6.9-10.8) Neutrophils (%) (Auto) 83.9 % (37.0-80.0) Lymphocytes (%) (Auto) 9.8 % (10.0-50.0) Monocytes (%) (Auto) 5.8 % (0.0-12.0) Eosinophils (%) (Auto) 0.2 % (0.0-7.0) Basophils (%) (Auto) 0.3 % (0.0-2.0) Neutrophils # (Auto) 8.7 10 ^3/uL (1.6-8.6) Lymphocytes # (Auto) 1.0 10 ^3/uL (0.4-5.4) Monocytes # (Auto) 0.6 10 ^3/uL (0-1.3) Eosinophils # (Auto) 0 10 ^3/uL (0-0.8) Basophils # (Auto) 0 10 ^3/uL (0-0.2) Nucleated Red Blood Cells 0.1 % Sodium Level 141 mmol/L (136-145) Potassium Level 3.9 mmol/L (3.5-5.1) Chloride Level 103 mmol/L (98-107) Carbon Dioxide Level 28 mmol/L (20-31) Anion Gap 10 (5-15) Blood Urea Nitrogen 6 mg/dL (9-23) Creatinine 0.74 mg/dL (0.700-1.30) Glomerular Filtration Rate Calc 114 mL/min (>90) BUN/Creatinine Ratio 8.1 (10.0-20.0) Serum Glucose 98 mg/dL (74-106) Calcium Level 9.1 mg/dL (8.7-10.4) Total Bilirubin 2.1 mg/dL (0.2-1.0) Aspartate Amino Transferase (AST) 16 U/L (13-40) Alanine Aminotransferase (ALT) 18 U/L (7-40) Alkaline Phosphatase 56 U/L (46-116) Total Protein 7.4 g/dL (5.7-8.2) Albumin 4.6 g/dL (3.2-4.8) Lactic Acid Level 0.9 mmol/L (0.4-2.0) Urine Color Light-yellow (Yellow) Urine Clarity Clear (Clear) Urine pH 6.5 (5.0-9.0) Urine Specific [place] 1.014 (1.001-1.035) Urine Protein Negative (Negative) Urine Ketones Negative (Negative) Urine Blood Negative /uL (Negative) Urine Nitrite Negative (Negative) Urine Bilirubin Negative (Negative) Urine Urobilinogen Normal mg/dL (Negative) Urine Leukocyte Esterase Negative /uL (Negative) Urine RBC <1 /hpf (0 - 3) Urine Microscopic WBC 4 /HPF (0-3) Urine Squamous Epithelial Cells None seen /hpf (<5) Urine Bacteria None seen /hpf (None Seen) Urine Glucose Normal mg/dL (Normal) Other Laboratory Tests 04/11/25 07:39 Brief Hx & Hospital Course: 44 yo male patient c/o bilateral flank pain x 1 day with associated fever, chills, and body aches. Patient sts that he had similar symptoms in February and the pain resolved on its own. Patient was admitted on April 10 for complicated UTI patient was treated with IV antibiotics. Patient states his flank pain has since gone away. He was converted to oral antibiotics and he was cleared for discharge. He will follow- up with his PCP in 1 week. The patient received proper medical treatment and medications. Vital signs, Imaging and Laboratory Work was monitored daily. All consults recommendations were followed as provided. There were no complaints or new complaints upon discharge, all questions and concerns were answered. Patient was advised to return to the ER or call 911 if any headaches, dizziness, shortness of breath, chest pain, bleeding, fevers, or worsening of medical condition. Patient/Family was counseled about treatment plan, medications, possible side effects, patient verbalized understanding. All questions were answered to the best of my ability. The patient symptoms improved and they are okay to be DC. Condition at Discharge: Stable Final Diagnosis/Problems List Complicated UTI Discharge Disposition: Home Discharge Instruct/Medications Diet: Regular Activity: No Restrictions, As Tolerated Follow Up/Referral: pcp 1 week Medications: Levaquin daily x 10 days Scheduled Cholecalciferol (Vitamin D3), 1 TAB PO DAILY, (Reported) Levofloxacin Hemihydrate (Levaquin 500 Mg), 500 MG PO DAILY Lisinopril & Hydrochlorothiazi (Lisinopril/Hydrochlorothi), 1 TAB PO DAILY, (Reported) Omeprazole (Gnp Omeprazole), 1 TAB PO DAILY, (Reported) Miscellaneous Medications Atorvastatin Calcium (Atorvastatin Calcium), (Reported) Semaglutide (Ozempic), 2 MG SC, (Reported) Discharge Statement: "Patient was advised to return to the ER or call 911 if any headaches, dizziness, shortness of breath, chest pain, abdominal pain, bleeding, fevers, or worsening of medical condition. Patient was counseled about treatment plan, medications, possible side effects, patientverbalized understanding. All questions were answered to the best of my ability. This discharge took greater then 30 minutes in planning, reviewing documentation, counseling the patient, and discussing with other team members." ASSESSMENT ASSESSMENT Assessment Complicated UTI MARIA D NOBLE NP Apr 12, 2025 11:46
[2025-04-12 13:00] VITALS: BP 124/89; PULSE 96; RESP 18; TEMP 98.2; O2SAT 98
[2025-04-12 14:43] VITALS: BP 134/92; PULSE 87; RESP 18; TEMP 98.2; O2SAT 96
== END 2025-04-12 16:00 | disposition home or self-care (01) | DRG 463 ==
LOC: ER 10:00 → OVERFLOW 14:55 → CENTRAL 21:14
PROVIDERS: ADMIT Nurse Practitioner; ATTEND Nurse Practitioner
DX: N39.0 Urinary tract infection, site not specified (principal); E78.5 Hyperlipidemia, unspecified; I10 Essential (primary) hypertension; R73.9 Hyperglycemia, unspecified; Z79.899 Other long term (current) drug therapy; Z87.442 Personal history of urinary calculi
CPT/HCPCS: 36415; 74176; 80048; 80053; 81001; 83605; 85025; 87040; 96365; G0378; J1956; J2543; J3490

== ENCOUNTER 2025-04-26 10:25 | Emergency (ER) | payer MEDICAID ==
[~2025-04-26 10:25] MED LIST: ATOR20TA50; CHOL20007 PO; LEVO500T91 PO; LISI-285 PO; OMEP20TA PO; SEMA2INJ3 SC
--- NOTE | 2025-04-26 11:05 | ED.PDOC ---
HPI Comments 44y M who presents to the ED for chief complaint of chest pain. Pt states he has been having chest pain since being discharged from [facility] 2 weeks prior for kidney infection. Pt states the pain is located substernal, radiating to the L side of chest, sharp and poking in nature, with no associated exacerbating or relieving factors. Pt otherwise denies any associated symptoms. Pt otherwise states he has history of DM and is taking Ozempic. Pt otherwise has stable vitals in the ED. Chief Complaint: Chest Pain Time Seen by MD: 10:56 Primary Care Provider: DENIES Reviewed Notes: Medications, Allergies Allergies: Coded Allergies: NO KNOWN ALLERGIES (Unverified , 06/30/19) Home Meds Active Scripts Naproxen (Naproxen) 375 Mg Tab, 375 MG PO TID for 10 Days, #30 TAB Prov:BAKARI SALAMANCA MD 04/26/25 Levofloxacin Hemihydrate (LEVAQUIN 500 MG) 500 Mg Tab, 500 MG PO DAILY for 10 Days, #10 TAB Prov:MARIA D NOBLE ERP MANAGER 04/12/25 Reported Medications Cholecalciferol (VITAMIN D3) 2,000 Unit Tab, 1 TAB PO DAILY, #30 TAB 5 Refills 04/10/25 Omeprazole (Gnp Omeprazole) 20 Mg Tab, 1 TAB PO DAILY, #90 TAB 1 Refill 04/10/25 Semaglutide (Ozempic) 2 Mg/3 Ml Inj, 2 MG SC, INJ 04/10/25 Atorvastatin Calcium (ATORVASTATIN CALCIUM) 20 Mg Tab 04/10/25 Lisinopril & Hydrochlorothiazi (Lisinopril/Hydrochlorothi) 1 Tab Tab, 1 TAB PO DAILY 04/10/25 Information Source: Patient Mode of Arrival: Ambulatory Brought in by: self Past Medical History PAST MEDICAL HISTORY: DM, High Lipids, HTN, Kidney Stones Surgical History (Other): vasectomy, tooth extraction Family History Family History: Reviewed,noncontributory to illness Social History Smoker: Non-Smoker Alcohol: Denies ETOH Use Drugs: Denies Drug Use Lives In: Home Constitutional: denies: chills, diaphoresis, fatigue, fever, malaise, sweats, weakness, others EENTM: denies: blurred vision, double vision, ear bleeding, ear discharge, ear drainage, ear pain, ear ringing, eye pain, eye redness, hearing loss, mouth pain , mouth swelling, nasal discharge, nose bleeding, nose congestion, nose pain, photophobia, tearing, throat pain, throat swelling, voice changes, others Respiratory: denies: cough, hemoptysis, orthopnea, SOB at rest, shortness of breath, SOB with excertion, stridor, wheezing, others Cardiovascular: reports: chest pain; denies: dizzy spells, diaphoresis, Dyspnea on exertion, edema, irregular heart beat, left arm pain, lightheadedness, palpitations, PND, syncope, others Gastrointestinal: denies: abdomen distended, abdominal pain, blood streaked bowels, constipated, diarrhea, dysphagia, difficulty swallowing, hematemesis, melena, nausea, poor appetite, poor fluid intake, rectal bleeding, rectal pain, vomiting, others Genitourinary: denies: burning, dysuria, flank pain, frequency, hematuria, incontinence, penile discharge, penile sore, pain, testicle pain, testicle swelling, urgency, others Neurological: denies: dizziness, fainting, headache, left sided numbness, left sided weakness, numbness, paresthesia, pre-existing deficit, right sided numbness, right sided weakness, seizure, speech problems, tingling, tremors, weakness, others Musculoskeletal: denies: back pain, gout, joint pain, joint swelling, muscle pain, muscle stiffness, neck pain, others Integumetry: denies: bruises, change in color, change in hair/nails, dryness, laceration, lesions, lumps, rash, wounds, others Allergic/Immunocompromised: denies: Difficulty Healing, Frequent Infections, Hives, Itching, others Hematologic/Lymphatic: denies: anemia, blood clots, easy bleeding, easy bruising, swollen glands, others Endocrine: denies: excessive hunger, excessive sweating, excessive thirst, excessive urination, flushing, intolerance to cold, intolerance to heat, unexplained weight gain, unexplained weight loss, others Psychiatric: denies: anxiety, bipolar disorder, depression, hopeless, panic disorder, schizophrenia, sleepless, suicidal, others All Other Systems: Reviewed and Negative Physical Exam General Appearance: No Apparent Distress, Normal HEENT: Normal ENT Inspection, PERRL/EOMI Neck: Full Range of Motion, Non-Tender, Normal, Normal Inspection Respiratory: Lungs Clear, No Accessory Muscle Use, No Respiratory Distress, Normal Breath Sounds, Other (Chest wall tender right upper area in the back) Cardiovascular: No Edema, No JVD, No Murmur, No Gallop, Normal Peripheral Pulses, Regular Rate/Rhythm Breast Exam: Deferred Gastrointestinal: No Organomegaly, Non Tender, No Pulsatile Mass, Normal Bowel Sounds, Soft Genitalia: Deferred Pelvic: Deferred Rectal: Deferred Extremities: No calf tenderness, Normal capillary refill, Normal inspection, Normal range of motion, Non-tender, No pedal edema Neurologic: Alert, director of teaching and learning II-XII nml as Tested, No Motor Deficits, Normal Affect, Normal Mood, No Sensory Deficits Cerebellar Function: Normal Reflexes: Normal Skin: Dry, Normal Color, Warm Peripheral Pulses: 1+ carotid (R), 1+ carotid (L) Lymphatic: No Adenopathy EKG EKG : Pulse Rate (adult): 89 [place]: Normal Cardiac Rhythm: NSR Block: None Hypertrophy: None ST: Normal Was a procedure done? Was a procedure done?: No CP Differential Dx Differential Diagnosis: Angina, Anxiety / Panic Attack, Electrolyte Disorder Differential Diagnosis: N/A Differential Diagnosis: Chest Wall Pain, Costochondritis, Esophageal reflux/spasm, Pneumonia Comment musculoskeletal chest pain X-Ray, Labs, Meds, VS Vital Signs Date Time Temp Pulse Resp B/P (MAP) Pulse Ox O2 Delivery O2 Flow Rate FiO2 04/26/25 12:01 75 04/26/25 11:18 101 18 97 Room Air 04/26/25 11:18 101 18 124/81 (95) 97 04/26/25 11:05 89 04/26/25 10:34 89 04/26/25 10:28 98.0 103 15 119/87 97 98.0 Lab Test 04/26/25 11:34 04/26/25 11:32 04/26/25 10:49 Range/Units Urine Color Light-yellow Yellow Urine Clarity Clear Clear Urine pH 5.5 5.0-9.0 Urine Specific [place] 1.018 1.001-1.035 Urine Protein Negative Negative Urine Ketones Negative Negative Urine Blood Negative Negative /uL Urine Nitrite Negative Negative Urine Bilirubin Negative Negative Urine Urobilinogen Normal Negative mg/dL Urine Leukocyte Esterase Negative Negative /uL Urine RBC <1 0 - 3 /hpf Urine Microscopic WBC < 1 0-3 /HPF Urine Squamous Epithelial Cells None seen <5 /hpf Urine Bacteria None seen None Seen /hpf Urine Mucus Few None Seen Urine Glucose Normal Normal mg/dL Troponin I High Sensitivity < 3 L < 3 L </=54 ng/L White Blood Count 7.1 4.4-10.8 10^3/uL Red Blood Count 5.59 4.5-5.90 10^6/uL Hemoglobin 16.7 13.5-17.5 g/dL Hematocrit 49.1 41.0-53.0 % Mean Corpuscular Volume 88.0 80.0-100.0 fL Mean Corpuscular Hemoglobin 29.9 28.0-32.0 pg Mean Corpuscular Hemoglobin Concent 34.0 32.0-36.0 g/dL Red Cell Distribution Width 13.7 11.8-14.3 % Platelet Count 287 140-450 10^3/uL Mean Platelet Volume 7.1 6.9-10.8 fL Neutrophils (%) (Auto) 76.2 37.0-80.0 % Lymphocytes (%) (Auto) 16.4 10.0-50.0 % Monocytes (%) (Auto) 6.5 0.0-12.0 % Eosinophils (%) (Auto) 0.5 0.0-7.0 % Basophils (%) (Auto) 0.4 0.0-2.0 % Neutrophils # (Auto) 5.4 1.6-8.6 10 ^3/uL Lymphocytes # (Auto) 1.2 0.4-5.4 10 ^3/uL Monocytes # (Auto) 0.5 0-1.3 10 ^3/uL Eosinophils # (Auto) 0 0-0.8 10 ^3/uL Basophils # (Auto) 0 0-0.2 10 ^3/uL Nucleated Red Blood Cells 0.3 % Sodium Level 138 136-145 mmol/L Potassium Level 3.9 3.5-5.1 mmol/L Chloride Level 98 98-107 mmol/L Carbon Dioxide Level 31 20-31 mmol/L Anion Gap 9 5-15 Blood Urea Nitrogen 11 9-23 mg/dL Creatinine 0.85 0.700-1.30 mg/dL Glomerular Filtration Rate Calc 109 >90 mL/min BUN/Creatinine Ratio 12.9 10.0-20.0 Serum Glucose 95 74-106 mg/dL Calcium Level 9.8 8.7-10.4 mg/dL Magnesium Level 2.2 1.6-2.6 mg/dL Total Bilirubin 1.7 H 0.2-1.0 mg/dL Aspartate Amino Transferase (AST) 25 13-40 U/L Alanine Aminotransferase (ALT) 45 H 7-40 U/L Alkaline Phosphatase 58 46-116 U/L Total Protein 7.7 5.7-8.2 g/dL Albumin 5.1 H 3.2-4.8 g/dL Current Medications Medications (Trade) Dose Ordered Sig/Randy Route Start Time Stop Time Status Last Admin Ketorolac Tromethamine (Toradol Injection) 30 mg ONCE ONCE IV 04/26/25 10:45 04/26/25 10:46 DC 04/26/25 11:31 [place] [id number] Ph: [phone] DIAGNOSTIC IMAGING Diagnostic Imaging Report : [id number] Signed PATIENT: THELMA SALOMON ACCT: [id number] UNIT: [id number] : 1980 LOC: ER ROOM / BED: / AGE / SEX: 44 / M ADM STATUS: REG ER SERVICE 1043 ORDERING PHYSICIAN: BAKARI SALAMANCA MD PROCEDURE(s): CXR2 - CHEST TWO VIEWS ROUTINE REASON: cp ORDER NUMBER(s): [id number], ACCESSION NUMBER(s): [id number] CLINICAL HISTORY: cp TECHNIQUE: Chest 2 views of the chest were obtained. COMPARISON: None FINDINGS: The heart size and pulmonary vasculature are normal. The lungs are clear. No pleural effusion is present. IMPRESSION: NO ACUTE CARDIOPULMONARY PROCESS. ATED BY: MATT DANGELO MD DICTATED DATE/TIME: 04/26/25 112 SIGNED BY: MATT DANGELO MD SIGNED DATE/TIME: 04/26/251122 CC: X-Ray, Labs, Meds, VS Comment Course in the emergency department eventful patient came in complaining of chest pain for two weeks spontaneous Chest x-ray negative EKG shows normal sinus rhythm at 89 CBC normal Urine negative Troponin three and three Magnesium two 0.2 Patient will be discharged home to follow up with his PCP Time of 1ST Reevaluation: 11:30 Reevaluation 1ST: Unchanged Patient Education/Counseling: Diagnosis, Treatment, Prognosis, Need For Follow Up Family Education/Counseling: Diagnosis, Treatment, Prognosis, Need For Follow Up, No Family Present SEPSIS Sepsis Screen Date sepsis recognized/suspect: Apr 26, 2025 Time Sepsis recognized/suspect: 1029 Recent Procedure: No On Antibiotic Therapy: No Respiratory Rate >20: No Heart Rate >90: Yes Temp<36 C (96.8 F) or >38.3 C: No SBP <90 or MAP <65 mmHG: No New Acute Mental Status Change: No Is the patient on CPAP, BIPAP,: No Physician Orders Electrocardigram (04/26/25 11:26) Electrocardigram (04/26/25 13:26) Heplock Iv (04/26/25 10:43) Chest Two Views Routine (04/26/25 10:43) Vital Signs Date Time Temp Pulse Resp B/P (MAP) Pulse Ox O2 Delivery O2 Flow Rate FiO2 04/26/25 12:01 75 04/26/25 11:18 101 18 97 Room Air 04/26/25 11:18 101 18 124/81 (95) 97 04/26/25 11:05 89 04/26/25 10:34 89 04/26/25 10:28 98.0 103 15 119/87 97 98.0 Laboratory Tests Test 04/26/25 10:49 White Blood Count 7.1 10^3/uL (4.4-10.8) Medications Medications Dose Ordered Sig/Randy Route Start Time Stop Time Status Last Admin Dose Admin Ketorolac Tromethamine 30 mg ONCE ONCE IV 04/26/25 10:45 04/26/25 10:46 DC 04/26/25 11:31 Departure 1 Departure Time of Disposition: 13:33 Impression: Primary Impression: Musculoskeletal chest pain Disposition: 01 HOME / SELF CARE / HOMELESS Condition: Fair Additional Instructions: Local heat and follow up with your PCP e-Prescriptions Naproxen (Naproxen) 375 Mg Tab 375 MG PO TID for 10 Days, #30 TAB Prov: BAKARI SALAMANCA MD 04/26/25 Discharged With: Self Critical Care Note Critical Care Time?: No Stability Stability form required: No Heart Score Heart Score: Heart Score Response (Comments) Value History Slightly Suspicious 0 EKG Normal 0 Age <45 0 Risk Factors N/A 0 Troponin N/A 0 Total 0 I personally scribed for BAKARI SALAMANCA MD ([email or web address]) on 04/26/25 at 11:05. Electronically submitted by Deidra Fernandez ([facility] I personally scribed for BAKARI SALAMANCA MD ([email or web address]) on 04/26/25 at 11:48. Electronically submitted by Deidra Fernandez ([facility] BAKARI SALAMANCA MD Apr 26, 2025 11:05
[2025-04-26 11:06] LABS: Hematocrit 49.1 % (41.0-53.0); Hemoglobin 16.7 g/dL (13.5-17.5); Mean Corpuscular Hemoglobin 29.9 pg (28.0-32.0); Mean Corpuscular Volume 88.0 fL (80.0-100.0); Nucleated Red Blood Cells % 0.3 %
--- NOTE | 2025-04-26 11:26 | DVH ---
CLINICAL HISTORY: cp TECHNIQUE: Chest 2 views of the chest were obtained. COMPARISON: None FINDINGS: The heart size and pulmonary vasculature are normal. The lungs are clear. No pleural effusion is pres ent. IMPRESSION: NO ACUTE CARDIOPULMONARY PROCESS.
[2025-04-26] MEDS: KETOROLAC TROMETH 30 MG/ML 1ML VIAL IV ONE (11:31)
[2025-04-26 11:34] LABS: Alkaline Phosphatase 58 U/L (46-116); Anion Gap 9 (5-15); BUN/Creatinine Ratio 12.9 (10.0-20.0); Blood Urea Nitrogen 11 mg/dL (9-23); Calcium 9.8 mg/dL (8.7-10.4); Glucose 95 mg/dL (74-106); Magnesium 2.2 mg/dL (1.6-2.6); Potassium 3.9 mmol/L (3.5-5.1); Sodium 138 mmol/L (136-145); Total Protein 7.7 g/dL (5.7-8.2)
[2025-04-26 11:38] LABS: Alanine Aminotransferase 45 U/L (7-40); Albumin 5.1 g/dL (3.2-4.8); Bilirubin, Total 1.7 mg/dL (0.2-1.0); Carbon Dioxide 31 mmol/L (20-31); Chloride 98 mmol/L (98-107)
--- NOTE | 2025-04-26 12:03 | ECG ---
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
[2025-04-26 12:32] LABS: Urine Protein, UAD Negative (Negative)
[2025-04-26] MEDS ORDERED: NAPR-957 PO (13:35)
[2025-04-26 13:47] VITALS: BP 120/74; PULSE 89; RESP 18; TEMP 98; O2SAT 99
--- NOTE | 2025-04-26 20:11 | ECG ---
[facility] Test Date: 2025-04-26 Test Time: 10:34:59 Pat Name: THELMA SALOMON Department: ED Room: Gender: M Industrial Technician: ALISHA : 1980 Requested By: BAKARI SALAMANCA Order Number: [id number] Reading MD: Measurements Intervals [place] Rate: 89 P: -7 [place]: 135 QRS: -35 QRSD: 92 T: 51 QT: 348 QTc: 424 Interpretive Statements Sinus rhythm Left axis deviation Please click the below link to view image of tracing.
--- NOTE | 2025-04-26 20:13 | ECG ---
[facility] Test Date: 2025-04-26 Test Time: 13:35:20 Pat Name: THELMA SALOMON Department: ED Room: Gender: M Manager Of Investigations: ANGELICA : 1980 Requested By: BAKARI SALAMANCA Order Number: [id number] Reading MD: Measurements Intervals [place] Rate: 68 P: 66 [place]: 145 QRS: 99 QRSD: 89 T: 25 QT: 380 QTc: 405 Interpretive Statements Sinus rhythm Borderline right axis deviation Please click the below link to view image of tracing.
== END 2025-04-26 13:59 | disposition home or self-care (01) ==
LOC: ER 10:25
DX: R07.89 Other chest pain (principal); E11.9 Type 2 diabetes mellitus without complications; I10 Essential (primary) hypertension; E78.5 Hyperlipidemia, unspecified; Z79.899 Other long term (current) drug therapy; Z87.442 Personal history of urinary calculi
CPT/HCPCS: 36415; 71046; 80053; 81001; 83735; 84484; 85025; 93005; 96374; 99285; J1885